=== PATIENT | male | born 1940 | race Caucasian/White ===

== ENCOUNTER 2020-05-09 12:14 | Emergency (ER) | payer OTHER ==
[~2020-05-09] VITALS: Ht 167.6 cm; Wt 86.2 kg
[2020-05-09] MEDS ORDERED: TUMS500 MG (13:34)
[2020-05-09] MEDS ORDERED: B COMPLEX FORM0.4 MG (13:34)
[2020-05-09] MEDS ORDERED: CHLO25B PO (13:35)
[2020-05-09] MEDS ORDERED: DONEPEZIL HCL10 MG PO (13:36)
[2020-05-09] MEDS ORDERED: FLUO10 PO (13:37)
[2020-05-09] MEDS ORDERED: Flonase 0.05% N16 GM (13:38)
[2020-05-09] MEDS ORDERED: LAMO100 PO (13:38)
[2020-05-09] MEDS ORDERED: TAMS.4ER (14:11)
[2020-05-09] MEDS ORDERED: VITAMIN B125000 MC1 (14:11)
[2020-05-09] MEDS ORDERED: VITAMIN D325 MC3 (14:12)
[2020-05-09] MEDS ORDERED: ACET500 (14:12)
[2020-05-09] MEDS ORDERED: BISMATROL525 MG/15 (14:13)
[2020-05-09] MEDS ORDERED: ZADITOR5 M1 (14:14)
[2020-05-09] MEDS ORDERED: PRAHYD1AE (14:14)
[2020-05-09] MEDS ORDERED: LIDO700A20 (14:14)
[2020-05-09] MEDS ORDERED: MELA3 ×2 (14:15→14:16)
[2020-05-09] MEDS ORDERED: TRIPLE ANTIBIOT28 GM (14:15)
[2020-05-09] MEDS ORDERED: LOPE2C (14:15)
[2020-05-09] MEDS ORDERED: [UNRECOGNIZED DRUG - OTHER] (14:15)
[2020-05-09] MEDS ORDERED: TRAM50 (14:15)
== END 2020-05-09 16:43 | disposition home or self-care (01) ==
LOC: ER 12:14
DX: S09.90XA Unspecified injury of head, initial encounter (principal); Z87.891 Personal history of nicotine dependence; Z79.899 Other long term (current) drug therapy; W05.0XXA Fall from non-moving wheelchair, initial encounter
CPT/HCPCS: 70450; 72125; 73502; 93005; 93010; 99284-25; A9270

== ENCOUNTER 2020-05-29 10:11 | Emergency (ER) | payer OTHER ==
[~2020-05-29] VITALS: Ht 175.3 cm; Wt 86.2 kg
[~2020-05-29 10:11] MED LIST: ACET500; B COMPLEX FORM0.4 MG; BISMATROL525 MG/15; CHLO25B PO; DONEPEZIL HCL10 MG PO; FLUO10 PO; Flonase 0.05% N16 GM; LAMO100 PO; LIDO700A20; LOPE2C; MELA3; PRAHYD1AE; TAMS.4ER; TRAM50; TRIPLE ANTIBIOT28 GM; TUMS500 MG; VITAMIN B125000 MC1; VITAMIN D325 MC3; ZADITOR5 M1; [UNRECOGNIZED DRUG - OTHER]
[2020-05-29] MEDS ORDERED: CODACE30 PO (12:19)
== END 2020-05-29 14:18 | disposition home or self-care (01) ==
LOC: ER 10:11
DX: S62.521A Displaced fracture of distal phalanx of right thumb, initial encounter for closed fracture (principal); Z79.899 Other long term (current) drug therapy; Z87.891 Personal history of nicotine dependence; W01.0XXA Fall on same level from slipping, tripping and stumbling without subsequent striking against object, initial encounter
CPT/HCPCS: 29125; 73140; 99283-25; A9270

== ENCOUNTER 2020-05-31 17:20 | Emergency (ER) | payer OTHER ==
[~2020-05-31] VITALS: Ht 170.2 cm; Wt 79.4 kg
[~2020-05-31 17:20] MED LIST changes: +CODACE30 PO
[2020-05-31] MEDS ORDERED: CEPH500 PO (19:14)
== END 2020-05-31 19:43 | disposition home or self-care (01) ==
LOC: ER 17:20
DX: S80.12XA Contusion of left lower leg, initial encounter (principal); S80.11XA Contusion of right lower leg, initial encounter; S90.812A Abrasion, left foot, initial encounter; V03.99XA Pedestrian with other conveyance injured in collision with car, pick-up truck or van, unspecified whether traffic or nontraffic accident, initial encounter; Y92.481 Parking lot as the place of occurrence of the external cause
CPT/HCPCS: 73590; 73620; 99283-25; A9270

== ENCOUNTER 2021-01-11 19:30 | Emergency (ER) | payer OTHER ==
[~2021-01-11] VITALS: Ht 170.2 cm; Wt 83.9 kg
[~2021-01-11 19:30] MED LIST changes: +CEPH500 PO
[2021-01-11] MEDS ORDERED: FISH OIL 1,2001 EAC7 PO (19:47)
== END 2021-01-11 22:11 | disposition home or self-care (01) ==
LOC: ER 19:30
DX: S01.81XA Laceration without foreign body of other part of head, initial encounter (principal); Z88.8 Allergy status to other drugs, medicaments and biological substances; Z88.5 Allergy status to narcotic agent; Z91.040 Latex allergy status; Z88.1 Allergy status to other antibiotic agents; Z79.899 Other long term (current) drug therapy; Z87.891 Personal history of nicotine dependence; W22.8XXA Striking against or struck by other objects, initial encounter
CPT/HCPCS: 70450; 99284-25

== ENCOUNTER 2021-02-14 16:50 | Emergency (ER) | payer OTHER ==
[~2021-02-14] VITALS: Ht 170.2 cm; Wt 86.6 kg
[~2021-02-14 16:50] MED LIST changes: +FISH OIL 1,2001 EAC7 PO
== END 2021-02-14 18:55 | disposition home or self-care (01) ==
LOC: ER 16:50
DX: S93.401A Sprain of unspecified ligament of right ankle, initial encounter (principal); Z87.891 Personal history of nicotine dependence; X58.XXXA Exposure to other specified factors, initial encounter
CPT/HCPCS: 73600; 99283-25

== ENCOUNTER 2021-06-23 18:48 | Emergency (ER) | payer OTHER ==
[~2021-06-23] VITALS: Ht 170.2 cm; Wt 81.7 kg
== END 2021-06-23 22:11 | disposition home or self-care (01) ==
LOC: ER 18:48
DX: S39.012A Strain of muscle, fascia and tendon of lower back, initial encounter (principal); Z79.899 Other long term (current) drug therapy; Z87.891 Personal history of nicotine dependence; Z91.040 Latex allergy status; Z88.0 Allergy status to penicillin; X58.XXXA Exposure to other specified factors, initial encounter
CPT/HCPCS: 72100; 99283-25; A9270

== ENCOUNTER 2022-04-13 12:13 | Emergency (ER) | payer OTHER ==
[~2022-04-13] VITALS: Ht 160 cm; Wt 68.0 kg
== END 2022-04-13 18:53 | disposition home or self-care (01) ==
LOC: ER 12:13
DX: S09.90XA Unspecified injury of head, initial encounter (principal); F03.90 Unspecified dementia, unspecified severity, without behavioral disturbance, psychotic disturbance, mood disturbance, and anxiety; Z87.891 Personal history of nicotine dependence; W19.XXXA Unspecified fall, initial encounter
CPT/HCPCS: 70450; 71045; 99284-25

== ENCOUNTER 2022-12-15 14:30 | Emergency (ER) | payer OTHER ==
[~2022-12-15] VITALS: Ht 162.6 cm; Wt 72.6 kg
[2022-12-15] MEDS ORDERED: CEPH500 PO (15:18)
[2022-12-15 15:30] VITALS: BP 127/82
[2022-12-15] MEDS ORDERED: CEPHALEXIN500 M1 PO (16:53)
== END 2022-12-15 16:09 | disposition home or self-care (01) ==
LOC: ER 14:30
DX: L03.221 Cellulitis of neck (principal); F03.90 Unspecified dementia, unspecified severity, without behavioral disturbance, psychotic disturbance, mood disturbance, and anxiety; Z88.8 Allergy status to other drugs, medicaments and biological substances; Z88.5 Allergy status to narcotic agent; Z91.040 Latex allergy status; Z88.1 Allergy status to other antibiotic agents; Z87.891 Personal history of nicotine dependence
CPT/HCPCS: 99283; A9270

== ENCOUNTER 2022-12-18 11:07 | Emergency (ER) | payer OTHER ==
[~2022-12-18] VITALS: Ht 175.3 cm; Wt 77.1 kg
[~2022-12-18 11:07] MED LIST changes: +CEPHALEXIN500 M1 PO
[2022-12-18 12:49] VITALS: BP 132/86
== END 2022-12-18 12:47 | disposition home or self-care (01) ==
LOC: ER 11:07
DX: S09.90XA Unspecified injury of head, initial encounter (principal); W18.39XA Other fall on same level, initial encounter; F03.90 Unspecified dementia, unspecified severity, without behavioral disturbance, psychotic disturbance, mood disturbance, and anxiety; Z88.8 Allergy status to other drugs, medicaments and biological substances; Z88.5 Allergy status to narcotic agent; Z91.040 Latex allergy status; Z79.899 Other long term (current) drug therapy; Z87.891 Personal history of nicotine dependence
CPT/HCPCS: 99284

== ENCOUNTER 2023-02-02 13:23 | Emergency (ER) | payer OTHER ==
[~2023-02-02] VITALS: Ht 172.7 cm; Wt 81.7 kg
[2023-02-02 15:30] VITALS: BP 122/70
[2023-02-07] MEDS ORDERED: LIDO700A20 TOP (07:48)
[2023-02-07] MEDS ORDERED: Ibuprofen600 MG PO (07:49)
== END 2023-02-02 16:34 | disposition home or self-care (01) ==
LOC: ER 13:23
DX: S09.90XA Unspecified injury of head, initial encounter (principal); S70.02XA Contusion of left hip, initial encounter; F03.90 Unspecified dementia, unspecified severity, without behavioral disturbance, psychotic disturbance, mood disturbance, and anxiety; Z87.891 Personal history of nicotine dependence; Z79.899 Other long term (current) drug therapy; Z88.5 Allergy status to narcotic agent; Z88.8 Allergy status to other drugs, medicaments and biological substances; Z91.040 Latex allergy status; W18.2XXA Fall in (into) shower or empty bathtub, initial encounter; Y92.091 Bathroom in other non-institutional residence as the place of occurrence of the external cause
CPT/HCPCS: 70450; 73502; 99285-25

== ENCOUNTER 2023-03-05 13:31 | Emergency (ER) | payer OTHER ==
[~2023-03-05] VITALS: Ht 172.7 cm; Wt 72.6 kg
[~2023-03-05 13:31] MED LIST changes: +Ibuprofen600 MG PO; +LIDO700A20 TOP
[2023-03-05 15:00] VITALS: BP 116/74
== END 2023-03-05 16:10 | disposition home or self-care (01) ==
LOC: ER 13:31
DX: Z00.00 Encounter for general adult medical examination without abnormal findings (principal); F03.90 Unspecified dementia, unspecified severity, without behavioral disturbance, psychotic disturbance, mood disturbance, and anxiety; Z88.8 Allergy status to other drugs, medicaments and biological substances; Z88.5 Allergy status to narcotic agent; Z91.040 Latex allergy status; Z79.899 Other long term (current) drug therapy
CPT/HCPCS: 99283-25

== ENCOUNTER 2023-03-26 16:49 | Emergency (ER) | payer OTHER ==
[~2023-03-26] VITALS: Ht 172.7 cm; Wt 72.6 kg
[2023-03-26 19:10] VITALS: BP 148/78
[2023-03-30] MEDS ORDERED: LAMO100 PO (13:24)
== END 2023-03-26 19:11 | disposition home or self-care (01) ==
LOC: ER 16:49
DX: S09.90XA Unspecified injury of head, initial encounter (principal); F03.90 Unspecified dementia, unspecified severity, without behavioral disturbance, psychotic disturbance, mood disturbance, and anxiety; R29.6 Repeated falls; Z79.899 Other long term (current) drug therapy; Z88.5 Allergy status to narcotic agent; Z91.040 Latex allergy status; W05.0XXA Fall from non-moving wheelchair, initial encounter
CPT/HCPCS: 70450; 99284-25

== ENCOUNTER 2023-03-30 12:58 | Emergency (ER) | payer MEDICARE, OTHER ==
[~2023-03-30] VITALS: Ht 170.2 cm; Wt 81.7 kg
[2023-03-30 16:15] VITALS: BP 120/80
== END 2023-03-30 16:26 | disposition home or self-care (01) ==
LOC: ER 12:58
DX: S09.90XA Unspecified injury of head, initial encounter (principal); S16.1XXA Strain of muscle, fascia and tendon at neck level, initial encounter; W18.30XA Fall on same level, unspecified, initial encounter; Z88.8 Allergy status to other drugs, medicaments and biological substances; Z88.5 Allergy status to narcotic agent; Z91.048 Other nonmedicinal substance allergy status; Z88.1 Allergy status to other antibiotic agents; Z79.899 Other long term (current) drug therapy
CPT/HCPCS: 70450; 72125; 99284-25

== ENCOUNTER 2023-04-15 03:21 | Emergency (ER) | payer OTHER ==
[~2023-04-15] VITALS: Ht 175.3 cm; Wt 81.7 kg
[2023-04-15] MEDS ORDERED: Acetaminophen 500 MG Tab PO ONE (03:35)
[2023-04-15] MEDS ORDERED: Lidocaine 4% 1 Patch TOP ONE (03:35)
[2023-04-15 06:00] VITALS: BP 114/78
== END 2023-04-15 06:14 | disposition home or self-care (01) ==
LOC: ER 03:21
DX: S93.401A Sprain of unspecified ligament of right ankle, initial encounter (principal); S00.03XA Contusion of scalp, initial encounter; W18.30XA Fall on same level, unspecified, initial encounter; Z88.8 Allergy status to other drugs, medicaments and biological substances; Z88.5 Allergy status to narcotic agent; Z91.040 Latex allergy status; Z88.1 Allergy status to other antibiotic agents; Z79.899 Other long term (current) drug therapy
CPT/HCPCS: 70450; 72125; 73600; 93005; 93010; 99284-25; A9270

== ENCOUNTER 2023-04-22 11:07 | Emergency (ER) | payer OTHER ==
[~2023-04-22] VITALS: Ht 170.2 cm; Wt 72.6 kg
[2023-04-22] MEDS ORDERED: NS 1,000 ML IV SCH (11:30)
[2023-04-22 12:12] LABS: BASOPHILS ABSOLUTE AUTO 0.05 K/mm3 (0.00-0.23); BASOPHILS PERCENT AUTO 1 % (0-2); EOSINOPHILS ABSOLUTE AUTO 0.34 K/mm3 (0.00-0.68); EOSINOPHILS PERCENT AUTO 5 % (0-6); Hematocrit 43.4 % (37.0-53.0); Hemoglobin 15.6 g/dL (13.5-17.5); IMMATURE GRAN ABSOLUTE AUTO 0.03 K/mm3 (0.00-0.10); IMMATURE GRAN PERCENT AUTO 0 % (0-1); LYMPHOCYTES ABSOLUTE AUTO 1.69 K/mm3 (0.84-5.20); LYMPHOCYTES PERCENT AUTO 23 % (21-46); MONOCYTES ABSOLUTE AUTO 0.68 K/mm3 (0.16-1.47); MONOCYTES PERCENT AUTO 9 % (4-13); Mean Corpuscular HGB 34.1 pg (26.0-34.0); Mean Corpuscular HGB Conc 35.9 g/dL (31.5-36.5); Mean Corpuscular Volume 95 fL (80-100); Mean Platelet Volume 9.6 fL (9.1-12.4); NEUTROPHILS ABSOLUTE AUTO 4.63 K/mm3 (1.96-9.15); NEUTROPHILS PERCENT AUTO 62 % (41-73); Platelet Count 189 K/mm3 (150-400); RDW Coefficient Variation 13.5 % (11.7-14.2); RDW Standard Deviation 46.8 fL (35.1-46.3); Red Blood Cell Count 4.58 M/mm3 (4.30-5.90); White Blood Cell Count 7.42 K/mm3 (4.00-11.30)
[2023-04-22 12:22] LABS: Albumin, Blood 3.3 g/dL (3.4-5.0); Albumin/Globulin Ratio 0.9 (0.8-1.8); Bilirubin, Total 1.9 mg/dL (0.1-1.0); Calcium, Blood 9.5 mg/dL (8.5-10.1); Creatinine, Blood 1.54 mg/dL (0.60-1.20); Globulin, Blood 3.7 g/dL (2.2-4.0); Potassium, Blood 3.5 mmol/L (3.5-5.5)
[2023-04-22 12:30] VITALS: BP 94/60
== END 2023-04-22 12:00 | disposition home or self-care (01) ==
LOC: ER 11:07
PROVIDERS: Emergency Medicine
DX: S09.90XA Unspecified injury of head, initial encounter (principal); Z87.891 Personal history of nicotine dependence; F03.90 Unspecified dementia, unspecified severity, without behavioral disturbance, psychotic disturbance, mood disturbance, and anxiety; G11.9 Hereditary ataxia, unspecified; Z79.899 Other long term (current) drug therapy; Z88.5 Allergy status to narcotic agent; Z88.8 Allergy status to other drugs, medicaments and biological substances; Z91.040 Latex allergy status; W05.0XXA Fall from non-moving wheelchair, initial encounter; Y92.129 Unspecified place in nursing home as the place of occurrence of the external cause
CPT/HCPCS: 70450; 72125; 80053; 84484; 85025; 93005; 93010; 99284-25; J7030

== ENCOUNTER → 2023-04-23 | Outpatient (CLI) | payer OTHER | LOC: LAB SHORT 16:00 | DX: N39.0 Urinary tract infection, site not specified (principal) | CPT/HCPCS: 87086 ==

== ENCOUNTER 2023-09-08 00:24 | Observation (INO) | payer OTHER ==
[~2023-09-08] VITALS: Ht 165.1 cm; Wt 68.0 kg
[~2023-09-08 00:24] MED LIST changes: -ACET500; +ACET500 PO; +MELA3 PO; -TUMS500 MG; +TUMS500 MG PO; -VITAMIN D325 MC3; +VITAMIN D325 MC3 PO
[2023-09-08] MEDS ORDERED: Naloxone HCl 0.4MG / ML 1ML Vial IV ONE (00:40)
[2023-09-08 00:54] LABS: BASOPHILS ABSOLUTE AUTO 0.04 K/mm3 (0.00-0.23); BASOPHILS PERCENT AUTO 0 % (0-2); EOSINOPHILS ABSOLUTE AUTO 0.02 K/mm3 (0.00-0.68); EOSINOPHILS PERCENT AUTO 0 % (0-6); Hematocrit 36.3 % (37.0-53.0); IMMATURE GRAN ABSOLUTE AUTO 0.04 K/mm3 (0.00-0.10); IMMATURE GRAN PERCENT AUTO 0 % (0-1); LYMPHOCYTES ABSOLUTE AUTO 1.38 K/mm3 (0.84-5.20); LYMPHOCYTES PERCENT AUTO 13 % (21-46); MONOCYTES ABSOLUTE AUTO 0.83 K/mm3 (0.16-1.47); MONOCYTES PERCENT AUTO 8 % (4-13); Mean Corpuscular HGB 34.5 pg (26.0-34.0); Mean Corpuscular HGB Conc 35.8 g/dL (31.5-36.5); Mean Corpuscular Volume 96 fL (80-100); Mean Platelet Volume 9.3 fL (9.1-12.4); NEUTROPHILS PERCENT AUTO 78 % (41-73); Platelet Count 132 K/mm3 (150-400); RDW Coefficient Variation 14.1 % (11.7-14.2); RDW Standard Deviation 49.5 fL (35.1-46.3); Red Blood Cell Count 3.77 M/mm3 (4.30-5.90); White Blood Cell Count 10.51 K/mm3 (4.00-11.30)
[2023-09-08 01:02] LABS: Source, Urine Clean Catch
[2023-09-08 01:15] LABS: Appearance, Urine Cloudy (Clear); Bilirubin, Urine Neg (Neg); Blood, Urine 4+ (Neg); Color, Urine Yellow (P-Yellow); Glucose Qualitative, Urine Neg (Neg); Ketones, Urine Neg (Neg); Leukocyte Esterase, Urine 3+ (Neg); Nitrite, Urine Neg (Neg); Protein, Urine 3+ (Neg); Urobilinogen, Urine NORM (Normal)
[2023-09-08 01:22] LABS: Alanine Aminotransfer (ALT/SGP 31 U/L (12-78); Albumin, Blood 2.7 g/dL (3.4-5.0); Albumin/Globulin Ratio 0.7 (0.8-1.8); Alk Phos 79 U/L (50-136); Anion Gap 9 mmol/L (3-11); Aspartate Aminotrans (AST/SGOT 59 U/L (12-37); Blood Urea Nitrogen 49 mg/dL (8-24); Bun/Creatinine Ratio 25.8 (12.0-20.0); CO2, Blood 29 mmol/L (21-32); Calcium, Blood 8.4 mg/dL (8.5-10.1); Chloride, Blood 105 mmol/L (98-108); Ethanol (Alcohol), Blood, Med <3 mg/dL; Globulin, Blood 3.7 g/dL (2.2-4.0); Glomerular Filtration Rate 34 (60-); Glucose, Blood 124 mg/dL (70-99); Magnesium, Blood 2.2 mg/dL (1.6-2.4); Potassium, Blood 2.9 mmol/L (3.5-5.5); Sodium, Blood 140 mmol/L (136-145); Total Protein, Blood 6.4 g/dL (6.4-8.2)
[2023-09-08 01:35] LABS: Bacteria Many /hpf; Squamous Epithelial Cells Few /hpf (Few); White Blood Cells, Urine 25-50 /hpf (0-5)
[2023-09-08 01:36] LABS: U Opiates Screen DETECTED
[2023-09-08 01:37] LABS: U Amphetamine Screen Not Detected; U Barbituate Screen Not Detected; U Benzodiazapine Screen Not Detected; U Buprenorphine Screen Not Detected; U Cannabinoids Screen Not Detected; U Cocaine Screen Not Detected; U Methadone Screen Not Detected; U Methamphetamine Screen Not Detected; U Oxycodone Screen Not Detected; U Phencyclidine Screen Not Detected
[2023-09-08] MEDS ORDERED: CefTRIAXone Sodium 1,000 MG in NS 50 ML IV ONE (02:20)
[2023-09-08] MEDS ORDERED: NS 1,000 ML IV SCH (02:25)
[2023-09-08] MEDS ORDERED: Azithromycin 500 MG in NS 250 ML IV ONE (02:25)
[2023-09-08] MEDS ORDERED: Potassium Chl 20MEQ/Water100ML 100 ML IV SCH (02:40)
[2023-09-08] MEDS ORDERED: Acetaminophen 325 MG TABLET PO PRN (03:00)
[2023-09-08] MEDS ORDERED: SERT50 PO (04:01)
[2023-09-08 04:28] VITALS: BP 135/71
[2023-09-08 04:50] LABS: BASOPHILS ABSOLUTE AUTO 0.02 K/mm3 (0.00-0.23); BASOPHILS PERCENT AUTO 0 % (0-2); EOSINOPHILS ABSOLUTE AUTO 0.02 K/mm3 (0.00-0.68); EOSINOPHILS PERCENT AUTO 0 % (0-6); Hemoglobin 13.8 g/dL (13.5-17.5); IMMATURE GRAN ABSOLUTE AUTO 0.03 K/mm3 (0.00-0.10); IMMATURE GRAN PERCENT AUTO 0 % (0-1); LYMPHOCYTES ABSOLUTE AUTO 1.31 K/mm3 (0.84-5.20); LYMPHOCYTES PERCENT AUTO 15 % (21-46); MONOCYTES ABSOLUTE AUTO 0.72 K/mm3 (0.16-1.47); MONOCYTES PERCENT AUTO 8 % (4-13); Mean Corpuscular HGB 34.2 pg (26.0-34.0); Mean Corpuscular HGB Conc 35.4 g/dL (31.5-36.5); Mean Corpuscular Volume 97 fL (80-100); Mean Platelet Volume 9.5 fL (9.1-12.4); NEUTROPHILS ABSOLUTE AUTO 6.55 K/mm3 (1.96-9.15); NEUTROPHILS PERCENT AUTO 76 % (41-73); Platelet Count 114 K/mm3 (150-400); Red Blood Cell Count 4.03 M/mm3 (4.30-5.90); White Blood Cell Count 8.65 K/mm3 (4.00-11.30)
[2023-09-08] MEDS ORDERED: CefTRIAXone Sodium 1,000 MG in NS 100 ML IV SCH (05:00)
[2023-09-08 05:29] LABS: Albumin, Blood 2.9 g/dL (3.4-5.0); Albumin/Globulin Ratio 0.8 (0.8-1.8); Bun/Creatinine Ratio 26.8 (12.0-20.0); Calcium, Blood 8.5 mg/dL (8.5-10.1); Creatinine, Blood 1.79 mg/dL (0.60-1.20); Globulin, Blood 3.7 g/dL (2.2-4.0); Potassium, Blood 3.1 mmol/L (3.5-5.5); Total Protein, Blood 6.6 g/dL (6.4-8.2)
--- NOTE | 2023-09-08 06:35 | NUR ---
END OF SHIFT SUMMARY NEW ADMIT FOR UTI, DECREASED RESPONSIVENESS. PT SLEEPING, AWAKENS TO VERBAL STIMULI. ORIENTED TO SELF, STATES HES AT [facility]. [place], SPEECH SOMETIMES MUMBLED AND DIFFICULT TO UNDERSTAND. PT REMAINS NPO DUE TO UNABLE TO SAFELY COMPLETE SWALLOW EVAL. NOOBY. REPOSITIONED IN BED WITH 2XA. IVF, ABX, AND KRIDER INFUSING. SPOKE WITH LAURA NURSE FROM [facility] [phone] WHO STATES PT NORMALLY VERY CONVERSIVE, ARGUES WITH FELLOW RESIDENTS FREQUENTLY. REPORTS PT ALSO HAVING LOOSE STOOLS.
[2023-09-08] MEDS ORDERED: Azithromycin 500 MG in NS 250 ML IV SCH (07:00)
[2023-09-08] MEDS ORDERED: Potassium Chloride 20 MEQ TabCR PO ONE (07:20)
[2023-09-08 07:31] VITALS: BP 124/71
[2023-09-08] MEDS ORDERED: LamoTRIgine 100 MG Tab PO SCH (09:00)
[2023-09-08] MEDS ORDERED: Sertraline HCl 50 MG Tab PO SCH (09:00)
[2023-09-08] MEDS ORDERED: Melatonin 5 MG Tablet PO SCH (09:00)
[2023-09-08] MEDS ORDERED: Tamsulosin HCl 0.4 MG Cap PO SCH (09:00)
[2023-09-08] MEDS ORDERED: Enoxaparin 30 MG/0.3 ML SYR SC SCH (09:00)
[2023-09-08] MEDS ORDERED: Lactulose 20 GM/30 ML UDC PO SCH (09:00)
[2023-09-08 14:43] VITALS: BP 119/55
[2023-09-08] MEDS ORDERED: VISBIOME 112.51 EACH PO (15:46)
[2023-09-08] MEDS ORDERED: LEVO750 PO (15:47)
[2023-09-08] MEDS ORDERED: LevoFLOXacin 750 MG Tab PO ONE (16:00)
--- NOTE | 2023-09-08 17:20 | NUR ---
PT DISCHARGED THE PT WAS DISCHARGED BACK TO [facility] VIA WHEELCHAIR. PT WAS AWAKE AND ALERT AT THE TIME OF DC. ORDERS WERE FAXED TO J[facility] GONZALEZ BY CASE MANAGMENT. THE PT WAS ACCOMPANIED BY THE [facility]
== END 2023-09-08 17:09 | disposition home or self-care (01) ==
LOC: ER 00:24 → MEDS 00:25
PROVIDERS: Family Medicine Adult Medicine; Student in an Organized Health Care Education/Training Program; ADMIT Student in an Organized Health Care Education/Training Program
DX: N39.0 Urinary tract infection, site not specified (principal); F03.90 Unspecified dementia, unspecified severity, without behavioral disturbance, psychotic disturbance, mood disturbance, and anxiety; I10 Essential (primary) hypertension; R56.9 Unspecified convulsions; K21.9 Gastro-esophageal reflux disease without esophagitis; N40.0 Benign prostatic hyperplasia without lower urinary tract symptoms; J18.9 Pneumonia, unspecified organism; Z87.891 Personal history of nicotine dependence; Z88.8 Allergy status to other drugs, medicaments and biological substances; Z91.040 Latex allergy status; Z79.899 Other long term (current) drug therapy
CPT/HCPCS: 36415; 70450; 71045; 74176; 80053; 81001; 82140; 82947; 83605; 83735; 83880; 84484; 85025; 87040; 87077; 87086; 87186; 93005; 93010; 96361; 96365; 96366; 96367; 96372; 96375; 99285-25; A9270; G0378; J0456; J0696; J1650; J2310; J3480; J7030; J7050

== ENCOUNTER 2024-04-02 11:57 | Emergency (ER) | payer OTHER ==
[~2024-04-02] VITALS: Ht 175.3 cm; Wt 81.7 kg
[~2024-04-02 11:57] MED LIST changes: +LEVO750 PO; +SERT50 PO; +VISBIOME 112.51 EACH PO
[2024-04-02 15:01] VITALS: BP 143/93
== END 2024-04-02 15:27 | disposition home or self-care (01) ==
LOC: ER 11:57
DX: M25.551 Pain in right hip (principal); I10 Essential (primary) hypertension; K21.9 Gastro-esophageal reflux disease without esophagitis; Z79.899 Other long term (current) drug therapy; Z88.5 Allergy status to narcotic agent; Z91.040 Latex allergy status; Z88.6 Allergy status to analgesic agent; Z88.8 Allergy status to other drugs, medicaments and biological substances; Z87.891 Personal history of nicotine dependence
CPT/HCPCS: 72170; 99283-25